=== PATIENT | male | born 1975 | race Caucasian/White ===

== ENCOUNTER → 2018-12-26 10:25 | Outpatient (CLI) | payer OTHER, MEDICAID, SELFPAY ==
[2018-12-26 11:40] LABS: BUN Creatinine Ratio 14.4 (6-22); Blood Urea Nitrogen 13 mg/dL (9-20); Calcium 9.6 mg/dL (8.4-10.2); Carbon Dioxide 29 mmol/L (22-32); Chloride 105 mmol/L (98-107); Cholesterol 194 mg/dL (140-199); Estimated Glomerular Filt Rate > 60.0 mL/min (>60); Glucose 104 mg/dL (70-100); HDL Cholesterol 33 mg/dL (40-60); HEMOLYSIS < 15 (0-50); LDL Cholesterol Calculated 135 mg/dL (<100); Sodium 140 mmol/L (137-145); Triglycerides 132 mg/dL (35-150)
== END ==
PROVIDERS: Visit Provider Student in an Organized Health Care Education/Training Program
DX: Z13.220 Encounter for screening for lipoid disorders (principal); E86.0 Dehydration; N17.9 Acute kidney failure, unspecified
CPT/HCPCS: 36415; 80048; 80061

== ENCOUNTER → 2019-07-17 15:56 | Outpatient (CLI) | payer OTHER, MEDICAID, SELFPAY ==
[2019-07-17 17:31] LABS: Alanine Aminotransferase 43 IU/L (<50); Albumin 4.4 g/dL (3.5-5.0); Albumin Globulin Ratio 1.4 (1.0-2.8); Alkaline Phosphatase 95 U/L (38-126); Aspartate Aminotransferase 31 IU/L (17-59); Bilirubin Total 0.3 mg/dL (0.2-1.3); Bilirubin Unconjugated 0.2 mg/dL (0.0-1.1); Cholesterol 187 mg/dL (140-199); Globulin 3.2 g/dL (1.7-4.1); HDL Cholesterol 37 mg/dL (40-60); HEMOLYSIS < 15 (0-50); LDL Cholesterol Calculated 106 mg/dL (<100); Total Protein 7.6 g/dL (6.3-8.2); Triglycerides 220 mg/dL (35-150)
== END ==
PROVIDERS: PCP Student in an Organized Health Care Education/Training Program; Referring Provider Student in an Organized Health Care Education/Training Program; Visit Provider Student in an Organized Health Care Education/Training Program
DX: Z79.899 Other long term (current) drug therapy (principal); E78.2 Mixed hyperlipidemia; F17.200 Nicotine dependence, unspecified, uncomplicated
CPT/HCPCS: 36415; 80061; 80076